=== PATIENT | male | born 1955 | race Caucasian/White ===

== ENCOUNTER 2019-01-31 14:48 | Inpatient (IN) | payer OTHER ==
[~2019-01-31] VITALS: Ht 170.2 cm; Wt 72.0 kg
[2019-01-31 14:51] VITALS: BP 189/75
[2019-01-31 15:07] LABS: HEMATOCRIT 45.7 % (42.0-52.0); HEMOGLOBIN 15.3 gm/dL (14.0-18.0); MCHC 33.5 g/dL (28.0-37.0); MCV 92.7 fL (80.0-100.0); PLATELET COUNT 152 thou/uL (150-400); RBC 4.93 mil/uL (4.50-6.00); RDW 12.5 % (10.5-14.5); WBC 5.1 thou/uL (4.0-11.0)
[2019-01-31 15:11] LABS: ANION GAP 16 mmol/L (7-16); BUN 15 mg/dL (7-18); CALCIUM 9.3 mg/dL (8.5-10.1); CHLORIDE 103 mmol/L (98-107); CO2 21 mmol/L (21-32); CREATININE 1.1 mg/dL (0.7-1.3); GLUCOSE 222 mg/dL (74-106); POTASSIUM 3.2 mmol/L (3.5-5.1); SODIUM 140 mmol/L (136-145)
[2019-01-31 15:21] LABS: ALBUMIN 3.7 g/dL (3.4-5.0); DIRECT BILIRUBIN 0.7 mg/dL (<0.1-0.3); SGOT 64 U/L (15-37); SGPT 73 U/L (30-65); TOTAL BILIRUBIN 1.3 mg/dL (<0.1-1.0); TOTAL PROTEIN 7.8 g/dL (6.4-8.2); TROPONIN-I <0.06 ng/mL (<0.06)
[2019-01-31 15:39] LABS: ABSOLUTE NEUTROPHILS 2.3 thou/uL (1.4-8.2); PLATELET ESTIMATE NORMAL
[2019-01-31 21:15] VITALS: BP 159/70
[2019-01-31 21:24] VITALS: BP 177/92
[2019-01-31 23:00] LABS: CHOLESTEROL 144 mg/dL (<200); HDL CHOLESTEROL 45 mg/dL (>40); LDL CHOLESTEROL 80 mg/dL (<100); TC:HDL 3.2 Ratio (Not establshd); TRIGLYCERIDE 96 mg/dL (<150); VLDL 19 mg/dL (<40)
[2019-01-31 23:10] LABS: SERUM ASSESSMENT Clear
[2019-02-01 00:36] VITALS: BP 164/77
[2019-02-01 04:39] LABS: ANION GAP 7 mmol/L (7-16); BUN 14 mg/dL (7-18); CALCIUM 8.7 mg/dL (8.5-10.1); CHLORIDE 104 mmol/L (98-107); CO2 27 mmol/L (21-32); CREATININE 0.9 mg/dL (0.7-1.3); GLUCOSE 81 mg/dL (74-106); POTASSIUM 3.7 mmol/L (3.5-5.1); SODIUM 138 mmol/L (136-145)
[2019-02-01 04:48] LABS: TROPONIN-I <0.06 ng/mL (<0.06)
[2019-02-01 06:13] VITALS: BP 161/83
--- NOTE | 2019-02-01 06:40 | NUR ---
PT ADMITTED AT HS FROM ED. A&O X4 ABLE TO MAKE NEEDS KNOWN. C/O CHEST DISCOMFORT UPON ARRIVAL TO THE FLOOR STATED WAS NOT REALLY PAIN JUST DISCOFORT PT STATED HE REFUSED TO TAKE MORPHINE IN ED. PT EDUCATED ON SIGNIFICANCE OF MORPHINE WITH CP. PT REFUSED PAIN MED INTERVENTION. PT IN NO APPARENT DISTRESS. UP AD JOSE. DENIES SOA OR DIZINESS. PT HAD X1 EPISODE OF NAUSEA UPON ARRIVAL TO THE FLOOR EFFECTIVELY CONTROLLED VIA PRN ZOFRAN. PT CALLS APPROPRIATELY
--- NOTE | 2019-02-01 06:53 | NUR ---
PT HR TACHY THIS MORNING WITH PATIENT [employer]IV[facility] [employer] [address] WHILE IN THE BR BRUSHING HES TEETH
--- NOTE | 2019-02-01 10:15 | EKG ---
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
--- NOTE | 2019-02-01 10:16 | EKG ---
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
[2019-02-01] MEDS ORDERED: METOPROLOL SUCC25 M1 PO (11:01)
[2019-02-01 11:20] VITALS: BP 161/83
--- NOTE | 2019-02-01 12:01 | NUR ---
ASSESSMENT CHARTED. PT ALERT AND ORIENTED. VSS.DENIED HAVING ANY CHEST PAIN. SEEN BY DR. CANALES AND DR. DAVE. ORDERS GIVEN TO DISCHARGE PT TO HOME. DISCHARGE INSTRUCTIONS GIVEN TO PT. PT VERBERLISED UNDERSTANDING
[2019-02-03 03:06] LABS: GLYCOHEMOGLOBIN (HGB A1C) 5.1 % (4.8-5.6)
--- NOTE | 2019-02-05 14:09 | HC ---
[facility] [place] [address] CONSULTATION Name: OZIEL CHRIS Room #: 218-[facility] IN M.R.#: [id number] Admission: 01/31/19 Attend Phys: Stephen Tee MD Discharge: 02/01/19 Date of : 53 Report #: [id number] THIS REPORT FOR: //name// CC: FAM unknown Stephen Tee CARDIOLOGY CONSULTATION REASON FOR CONSULTATION: Lightheadedness and PVCs. HISTORY OF PRESENT ILLNESS: The patient is a 63-year-old male with history of hepatitis C, who reports that he has been having skipped heartbeats off and on for the past several months. He reports that these will occur with rest or activity. When he gets the episodes, he will feel lightheaded, dizzy, weak, and he will have a sensation of chest pain lasting a second with the skipped beats. He has tried coughing to terminate these. He has a daughter who is here with him today who also has PVCs and takes Bystolic. The patient otherwise denies any chest pain or chest tightness. He denies exertional dyspnea. He denies PND or orthopnea. He denies presyncope or syncope. REVIEW OF SYSTEMS: A 12-point review of systems was performed and was negative other than mentioned above. PAST MEDICAL HISTORY: 1. Hepatitis C. 2. Prior substance abuse. FAMILY HISTORY: Includes coronary artery disease and a brother with prior CABG. ALLERGIES: Reviewed. MEDICATIONS: Reviewed. PHYSICAL EXAMINATION: VITAL SIGNS: Normal. GENERAL: No acute distress. HEENT: Oropharynx clear. NECK: Supple, no thyromegaly. HEART: Regular rate and rhythm with no murmurs, rubs, gallops. He has no JVD. LUNGS: Clear to auscultation bilaterally. ABDOMEN: Soft, nontender, nondistended. EXTREMITIES: No clubbing, cyanosis, edema. NEUROLOGIC: Cranial nerves 2-12 are intact. LABORATORY DATA: His 12-lead EKG, initial EKG showed normal sinus rhythm with no ischemic changes. He had a repeat EKG, which showed sinus rhythm with bigeminal and trigeminal PVCs that are left bundle branch block transitioned in [facility] [address] [place] [address] CONSULTATION Name: OZIEL CHRIS Room #: 218-P [facility] IN .R.#: [id number] Admission: 01/31/19 Attend Phys: Stephen Tee MD Discharge: 02/01/19 Date of : 53 Report #: [id number] V3 and are negative in leads II, III, aVF. CT of the head was normal. Chest x-ray showed no acute process. LABORATORY DATA: CBC was normal. Chemistry was normal. Creatinine 0.9. Trop negative x 3. ProBNP is 492. LDL is 80. ASSESSMENT: Symptomatic contractions PVCs. PLAN: A 63-year-old with symptomatic PVCs. I recommend that we start him on Toprol 25 a day. His cardiac exam is normal and there is no ischemia on his EKGs and his troponins are normal. As such, I do not believe further cardiac testing is warranted in the hospital. He can be discharged on medications. He currently has no medical insurance. I discussed that he can establish care at [facility] where further cardiac testing can be performed, but at this time, beta stu therapies lengthening warranted. Thank you for this consult. <ELECTRONICALLY SIGNED> By: Kiet Mullen MD 02/05/19 1409 1036 1055 Kiet Mullen MD /nt
== END 2019-02-01 12:12 | disposition home or self-care (01) | DRG 310 ==
LOC: ER 14:48 → EROBS 19:35 → 2N 20:59
PROVIDERS: Emergency Medicine; Nurse Practitioner Family; ADMIT Internal Medicine
DX: I49.3 Ventricular premature depolarization (principal); F10.10 Alcohol abuse, uncomplicated; F12.90 Cannabis use, unspecified, uncomplicated; I10 Essential (primary) hypertension; Z86.19 Personal history of other infectious and parasitic diseases; Z82.49 Family history of ischemic heart disease and other diseases of the circulatory system; Z82.3 Family history of stroke; Z83.3 Family history of diabetes mellitus; Z71.6 Tobacco abuse counseling; Z79.899 Other long term (current) drug therapy
CPT/HCPCS: 10081